=== PATIENT | female | born 1990 | race Caucasian/White ===

== ENCOUNTER 2016-10-27 08:42 | Inpatient (IN) | payer BC, OTHER ==
[2016-10-27] MEDS ORDERED: Nalbuphine 20 MG/1 ML Amp IVPUSH PRN (09:53)
[2016-10-27] MEDS ORDERED: Ondansetron 4 MG/2 ML SDV IVPUSH PRN ×2 (09:53→12:33)
[2016-10-27] MEDS ORDERED: Sodium Chloride 0.9% 10 ML Syringe FLUSH PRN (09:53)
[2016-10-27] MEDS ORDERED: Oxytocin/Lactated Ringers 10 UNIT/1,000 ML BAG IV SCH (10:00)
[2016-10-27] MEDS: Lactated Ringers 1,000 ML IV SCH ×3 (12:04→14:38)
[2016-10-27] MEDS ORDERED: ePHEDrine 50 MG/ML SDV IVPUSH PRN (12:33)
[2016-10-27] MEDS ORDERED: fentaNYL 100 MCG/2 ML SDV EPIDUR PRN (12:33)
--- NOTE | 2016-10-27 12:36 | PCM.PREANE ---
Preanesthetic Assessment - Anesthesia/Transfusion/Family Hx Anesthesia History: Prior Anesthesia Without Reaction Family History of Anesthesia Reaction: No Transfusion History: No Prior Transfusion(s) Intubation History: Unknown - Review of Systems General: No Symptoms Pulmonary: No Symptoms Cardiovascular: No Symptoms Gastrointestinal: No Symptoms Neurological: No Symptoms Other: Reports: None - Physical Assessment NPO Status Date: 10/27/16 NPO Status Time: 05:15 Pulse: 61 O2 Sat by Pulse Oximetry: 98 Respiratory Rate: 14 Blood Pressure: 113/68 Temperature: 36.6 C Vital Signs: Last Vital Signs Temp 36.6 C 10/27/16 09:53 Pulse 61 10/27/16 09:53 Resp 14 10/27/16 09:53 BP 113/68 10/27/16 09:53 Pulse Ox 98 10/27/16 12:33 Height: 1.6 m Weight: 68.492 kg ASA Class: 2 Mental Status: Alert & Oriented x3 Airway Class: Mallampati = 2 Dentition: Reports: Normal Dentition, Caries Thyro-Mental Finger Breadths: 3 Mouth Opening Finger Breadths: 3 ROM/Head Extension: Full Lungs: Clear to Auscultation, Normal Respiratory Effort Cardiovascular: Regular Rate, Regular Rhythm, No Murmurs - Lab Values: Laboratory Last Values WBC 12.79 K/mm3 (3.98-10.04) H 10/27/16 10:18 RBC 3.83 M/mm3 (3.98-5.22) L 10/27/16 10:18 Hgb 12.2 gm/L (11.2-15.7) 10/27/16 10:18 Hct 34.4 % (34.1-44.9) 10/27/16 10:18 MCV 89.8 fl (79.4-94.8) 10/27/16 10:18 MCH 31.9 pg (25.6-32.2) 10/27/16 10:18 MCHC 35.5 g/dl (32.2-35.5) 10/27/16 10:18 RDW Std Deviation 40.1 fL (36.4-46.3) 10/27/16 10:18 Plt Count 205 K/mm3 (182-369) 10/27/16 10:18 MPV 11.4 fl (9.4-12.3) 10/27/16 10:18 Neut % (Auto) 76.9 % (34.0-71.1) H 10/27/16 10:18 Lymph % (Auto) 15.2 % (19.3-51.7) L 10/27/16 10:18 [place] % (Auto) 7.1 % (4.7-12.5) 10/27/16 10:18 Eos % (Auto) 0.3 (0.7-5.8) L 10/27/16 10:18 Baso % (Auto) 0.2 % (0.1-1.2) 10/27/16 10:18 Neut # (Auto) 9.83 K/mm3 (1.56-6.13) H 10/27/16 10:18 Lymph # (Auto) 1.94 K/mm3 (1.18-3.74) 10/27/16 10:18 [place] # (Auto) 0.91 K/mm3 (0.24-0.36) H 10/27/16 10:18 Eos # (Auto) 0.04 K/mm3 (0.04-0.36) 10/27/16 10:18 Baso # (Auto) 0.03 K/mm3 (0.01-0.08) 10/27/16 10:18 Above labs reviewed and noted. 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 - SUBSTANCE USE Smoking Status *Q: Never Smoker Recreational Drug Use History: No - HOME MEDS Home Medications: Home Meds PNV95/Ferrous Fumarate/FA [ Tablet] 1 each PO DAILY 10/27/16 [History] - CURRENT (IN HOUSE) MEDS Current Meds: Current Medications Ephedrine Sulfate (Ephedrine Sulfate) 5 mg IVPUSH ASDIRECTED PRN PRN Reason: Hypotension Fentanyl (Sublimaze) 100 mcg EPIDUR Q3H PRN PRN Reason: Pain Fentanyl/Bupivacaine HCl (Fentanyl/Bupivacaine/Ns 2 Mcg-0.125% 100 Ml) 100 ml EPIDUR ASDIRECTED [facility] Lactated Ringer's (Ringers, Lactated) 1,000 mls @ 100 mls/hr IV ASDIRECTED [facility] Last Admin: 10/27/16 12:04 Dose: 999 mls/hr Oxytocin/Lactated Ringer's (Pitocin In Lr 10 Units/1,000 Ml) 10 unit in 1,000 mls @ 500 mls/hr IV .CONTINUOUS [facility] Nalbuphine HCl (Nubain) 10 mg IVPUSH Q2H PRN PRN Reason: Pain (moderate 4-6) Ondansetron HCl (Zofran) 4 mg IVPUSH Q4H PRN PRN Reason: Nausea/Vomiting Ondansetron HCl (Zofran) 4 mg IVPUSH ONETIME PRN PRN Reason: Nausea/Vomiting Sodium Chloride (Saline Flush) 10 ml FLUSH ASDIRECTED PRN PRN Reason: Keep Vein Open
[2016-10-27] MEDS ORDERED: Bupivacaine/fentaNYL/NS 100 ML Bag EPIDUR SCH (12:45)
--- NOTE | 2016-10-27 14:56 | PCM.LDHP ---
L&D History of Present Illness - General Date of Service: 10/27/16 Admit Problem/Dx: Patient Status Order with Admit Dx/Problem 10/27/16 09:53 Patient Status [ADT] Routine Admission Diagnosis/Problem Admission Diagnosis/Problem - History of Present Illness Introduction:: 25 year old at 39w6d. Here with contractions in active labor and with SROM meconium. SROM at 0400. 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 Social & Family History - Family History Family Medical History: Noncontributory - Tobacco Use Smoking Status *Q: Never Smoker - Caffeine Use Caffeine Use: Reports: Coffee - Recreational Drug Use Recreational Drug Use: No H&P Review of Systems - Review of Systems: Review Of Systems: See Below General: Reports: No Symptoms HEENT: Reports: No Symptoms Pulmonary: Reports: No Symptoms Cardiovascular: Reports: No Symptoms Gastrointestinal: Reports: No Symptoms Genitourinary: Reports: No Symptoms Musculoskeletal: Reports: No Symptoms Skin: Reports: No Symptoms Psychiatric: Reports: No Symptoms Neurological: Reports: No Symptoms Hematologic/Lymphatic: Reports: No Symptoms Immunologic: Reports: No Symptoms L&D Exam - Exam Exam: See Below - Vital Signs Vital Signs: Last Vital Signs Temp 36.6 C 10/27/16 12:51 Pulse 61 10/27/16 12:51 Resp 14 10/27/16 12:51 BP 113/68 10/27/16 12:51 Pulse Ox 98 10/27/16 12:51 Weight: 68.492 kg - OB Specific Contraction Intensity: Moderate Movement: Active Heart Tones: Present Heart Rate (FHR) Variability: Moderate (6-25 bmp) Presentation: Vertex - Meléndez Score Meléndez Score Cervix Position: Midposition Meléndez Score Effacement: 51-70% Meléndez Score Dilation: 3-4 cm Meléndez Score Infant's Station: -1 ,0 - Exam General: Alert, Oriented HEENT: PERRLA, Conjunctiva Clear, EACs Clear, EOMI, Hearing Intact, Mucosa Moist & [place], Nares Patent, Normal Nasal Septum, Posterior Pharynx Clear, TMs Clear Neck: Supple, Trachea Midline Lungs: Clear to Auscultation, Normal Respiratory Effort Cardiovascular: Regular Rate, Regular Rhythm GI/Abdominal Exam: Normal Bowel Sounds, Soft, Non-Tender, No Organomegaly, No Distention, No Abnormal Bruit, No Mass, Pelvis Stable Genitourinary: Normal external exam, Normal bimanual exam, Normal speculum exam Back Exam: Normal Inspection, Full Range of Motion Extremities: Normal Inspection, Normal Range of Motion, Non-Tender, No Pedal Edema, Normal Capillary Refill Skin: Warm, Dry, Intact Neurological: Cranial Nerves Intact, Reflexes Equal Bilateral Psychiatric: Alert, Normal Affect, Normal Mood - Patient Data Lab Results Last 24 hrs: Laboratory Results - last 24 hr 10/27/16 Range/Units 10:18 WBC 12.79 H (3.98-10.04) K/mm3 RBC 3.83 L (3.98-5.22) M/mm3 Hgb 12.2 (11.2-15.7) gm/L Hct 34.4 (34.1-44.9) % MCV 89.8 (79.4-94.8) fl MCH 31.9 (25.6-32.2) pg MCHC 35.5 (32.2-35.5) g/dl RDW Std Deviation 40.1 (36.4-46.3) fL Plt Count 205 (182-369) K/mm3 MPV 11.4 (9.4-12.3) fl Neut % (Auto) 76.9 H (34.0-71.1) % Lymph % (Auto) 15.2 L (19.3-51.7) % [place] % (Auto) 7.1 (4.7-12.5) % Eos % (Auto) 0.3 L (0.7-5.8) Baso % (Auto) 0.2 (0.1-1.2) % Neut # (Auto) 9.83 H (1.56-6.13) K/mm3 Lymph # (Auto) 1.94 (1.18-3.74) K/mm3 [place] # (Auto) 0.91 H (0.24-0.36) K/mm3 Eos # (Auto) 0.04 (0.04-0.36) K/mm3 Baso # (Auto) 0.03 (0.01-0.08) K/mm3 Result Diagrams: 10/27/16 10:18 Problem List Initiated/Reviewed/Updated: Yes Orders Last 24hrs: Active Orders 24 hr Category Date Time Status Patient Status [ADT] Routine ADT 10/27/16 09:53 Active Activity as Tolerated [RC] PFP Care 10/27/16 09:53 Active Communication Order [RC] ASDIRECTED Care 10/27/16 09:53 Active Heart Tones [RC] ASDIRECTED Care 10/27/16 09:54 Active Notify Provider [RC] ASDIRECTED Care 10/27/16 12:33 Active Notify Provider [RC] PFP Care 10/27/16 09:53 Active Notify Provider [RC] PRN Care 10/27/16 09:53 Active Oxygen Therapy [RC] ASDIRECTED Care 10/27/16 12:33 Active Peripheral IV Care [RC] . DIRECTED Care 10/27/16 09:54 Active Pulse Oximetry [RC] ASDIRECTED Care 10/27/16 12:33 Active Vital Signs [RC] PER UNIT ROUTINE Care 10/27/16 09:53 Active Clear Liquid Diet [DIET] Diet 10/27/16 Breakfast Active Bupivacaine/fentaNYL/NS [fentaNYL/Bupivacaine/NS 2 MCG- Med 10/27/16 12:45 Active 0.125% 100 ML] 100 ml EPIDUR ASDIRECTED Lactated Ringers [Ringers, Lactated] 1,000 ml Med 10/27/16 10:00 Active IV ASDIRECTED Nalbuphine [Nubain] Med 10/27/16 09:53 Active 10 mg IVPUSH Q2H PRN Ondansetron [Zofran] Med 10/27/16 12:33 Active 4 mg IVPUSH ONETIME PRN Ondansetron [Zofran] Med 10/27/16 09:53 Active 4 mg IVPUSH Q4H PRN Oxytocin/Lactated Ringers [Pitocin in LR 10 Units/1,000 Med 10/27/16 10:00 Active ML] 10 unit in 1,000 ml IV .CONTINUOUS Sodium Chloride 0.9% [Saline Flush] Med 10/27/16 09:53 Active 10 ml FLUSH ASDIRECTED PRN ePHEDrine [ePHEDrine Sulfate] Med 10/27/16 12:33 Active 5 mg IVPUSH ASDIRECTED PRN fentaNYL [Sublimaze] Med 10/27/16 12:33 Active 100 mcg EPIDUR Q3H PRN Electronic Heart Tones Ext w TOCO [WOMSER] Oth 10/27/16 09:53 Ordered Routine Electronic Heart Tones Internal [WOMSER] Per Unit Oth 10/27/16 09:53 Ordered Routine Peripheral IV Insertion Adult [OM.PC] Routine Oth 10/27/16 09:53 Ordered Resuscitation Status Routine Resus Stat 10/27/16 09:53 Ordered Medication Orders Ephedrine Sulfate (Ephedrine Sulfate) 5 mg IVPUSH ASDIRECTED PRN PRN Reason: Hypotension Fentanyl (Sublimaze) 100 mcg EPIDUR Q3H PRN PRN Reason: Pain Last Admin: 10/27/16 12:52 Dose: 100 mcg Fentanyl/Bupivacaine HCl (Fentanyl/Bupivacaine/Ns 2 Mcg-0.125% 100 Ml) 100 ml EPIDUR ASDIRECTED [facility] Last Admin: 10/27/16 12:51 Dose: 100 ml Lactated Ringer's (Ringers, Lactated) 1,000 mls @ 100 mls/hr IV ASDIRECTED [facility] Last Admin: 10/27/16 14:38 Dose: 125 mls/hr Infusion: 10/27/16 13:47 Dose: 999 mls/hr Admin: 10/27/16 12:46 Dose: 999 mls/hr Infusion: 10/27/16 12:46 Dose: 999 mls/hr Admin: 10/27/16 12:04 Dose: 999 mls/hr Oxytocin/Lactated Ringer's (Pitocin In Lr 10 Units/1,000 Ml) 10 unit in 1,000 mls @ 500 mls/hr IV .CONTINUOUS [facility] Nalbuphine HCl (Nubain) 10 mg IVPUSH Q2H PRN PRN Reason: Pain (moderate 4-6) Ondansetron HCl (Zofran) 4 mg IVPUSH Q4H PRN PRN Reason: Nausea/Vomiting Ondansetron HCl (Zofran) 4 mg IVPUSH ONETIME PRN PRN Reason: Nausea/Vomiting Sodium Chloride (Saline Flush) 10 ml FLUSH ASDIRECTED PRN PRN Reason: Keep Vein Open Assessment/Plan Comment:: Term labor. Desires epidural. Anticipate .
[2016-10-27] MEDS ORDERED: Witch Hazel Medicated Pads 100/Jar TOP PRN (20:25)
[2016-10-27] MEDS ORDERED: Lanolin 100% Cream 7 GM Tube TOP PRN (20:25)
[2016-10-27] MEDS ORDERED: Benzocaine/Menthol 20%-0.5% Spray 56 GM Canister TOP PRN (20:25)
[2016-10-27] MEDS: Ibuprofen 600 MG Tab PO PRN (21:27)
[2016-10-27] MEDS: Docusate Sodium 100 MG Cap PO PRN (21:27)
[2016-10-27] MEDS ORDERED: Bupivacaine 0.25% 10 ML SDV ONE (22:22)
--- NOTE | 2016-10-28 04:53 | PCM.PNPP ---
- General Info Date of Service: 10/28/16 Functional Status: Reports: Pain Controlled - Review of Systems General: Reports: No Symptoms HEENT: Reports: No Symptoms Pulmonary: Reports: No Symptoms Cardiovascular: Reports: No Symptoms Gastrointestinal: Reports: No Symptoms Genitourinary: Reports: No Symptoms Musculoskeletal: Reports: No Symptoms Skin: Reports: No Symptoms Neurological: Reports: No Symptoms Psychiatric: Reports: No Symptoms - General Info Date of Service: 10/28/16 - Patient Data Vital Signs - Most Recent: Last Vital Signs Temp 36.6 C 10/27/16 12:51 Pulse 61 10/27/16 12:51 Resp 14 10/27/16 12:51 BP 113/68 10/27/16 12:51 Pulse Ox 98 10/27/16 12:51 Weight - Most Recent: 68.492 kg Lab Results - Last 24 Hours: Laboratory Results - last 24 hr 10/27/16 Range/Units 10:18 WBC 12.79 H (3.98-10.04) K/mm3 RBC 3.83 L (3.98-5.22) M/mm3 Hgb 12.2 (11.2-15.7) gm/L Hct 34.4 (34.1-44.9) % MCV 89.8 (79.4-94.8) fl MCH 31.9 (25.6-32.2) pg MCHC 35.5 (32.2-35.5) g/dl RDW Std Deviation 40.1 (36.4-46.3) fL Plt Count 205 (182-369) K/mm3 MPV 11.4 (9.4-12.3) fl Neut % (Auto) 76.9 H (34.0-71.1) % Lymph % (Auto) 15.2 L (19.3-51.7) % [place] % (Auto) 7.1 (4.7-12.5) % Eos % (Auto) 0.3 L (0.7-5.8) Baso % (Auto) 0.2 (0.1-1.2) % Neut # (Auto) 9.83 H (1.56-6.13) K/mm3 Lymph # (Auto) 1.94 (1.18-3.74) K/mm3 [place] # (Auto) 0.91 H (0.24-0.36) K/mm3 Eos # (Auto) 0.04 (0.04-0.36) K/mm3 Baso # (Auto) 0.03 (0.01-0.08) K/mm3 Med Orders - Current: Current Medications Benzocaine/Menthol (Dermoplast Pain Relief [place]) 0 gm TOP ASDIRECTED PRN PRN Reason: Perineal Comfort Measure Last Admin: 10/27/16 21:25 Dose: 1 applic Docusate Sodium (Colace) 100 mg PO BID PRN PRN Reason: Constipation Last Admin: 10/27/16 21:27 Dose: 100 mg Emollient Ointment (Lansinoh Hpa) 0 gm TOP ASDIRECTED PRN PRN Reason: Sore Nipples Ibuprofen (Motrin) 600 mg PO Q6H PRN PRN Reason: Mild pain or fever Last Admin: 10/27/16 21:27 Dose: 600 mg Witch [place] (Tucks) 1 pad TOP ASDIRECTED PRN PRN Reason: Hemorrhoid pain Last Admin: 10/27/16 21:24 Dose: 1 applic Discontinued Medications Ephedrine Sulfate (Ephedrine Sulfate) 5 mg IVPUSH ASDIRECTED PRN PRN Reason: Hypotension Fentanyl (Sublimaze) 100 mcg EPIDUR Q3H PRN PRN Reason: Pain Last Admin: 10/27/16 12:52 Dose: 100 mcg Fentanyl/Bupivacaine HCl (Fentanyl/Bupivacaine/Ns 2 Mcg-0.125% 100 Ml) 100 ml EPIDUR ASDIRECTED [facility] Last Admin: 10/27/16 12:51 Dose: 100 ml Lactated Ringer's (Ringers, Lactated) 1,000 mls @ 100 mls/hr IV ASDIRECTED [facility] Last Admin: 10/27/16 14:38 Dose: 125 mls/hr Oxytocin/Lactated Ringer's (Pitocin In Lr 10 Units/1,000 Ml) 10 unit in 1,000 mls @ 500 mls/hr IV .CONTINUOUS [facility] Nalbuphine HCl (Nubain) 10 mg IVPUSH Q2H PRN PRN Reason: Pain (moderate 4-6) Ondansetron HCl (Zofran) 4 mg IVPUSH Q4H PRN PRN Reason: Nausea/Vomiting Ondansetron HCl (Zofran) 4 mg IVPUSH ONETIME PRN PRN Reason: Nausea/Vomiting Sodium Chloride (Saline Flush) 10 ml FLUSH ASDIRECTED PRN PRN Reason: Keep Vein Open - Infant Interaction Disposition, : [place] in Room with Family Support Person: - Recovery Exam Fundal Tone: Firm Fundal Level: At Umbilicus Fundal Placement: Midline Lochia Amount: Small, Moderate Lochia Color: Rubra/Red Perineum Description: Edematous Episiotomy/Laceration: Approximated Bladder Status: Voiding Urinary Elimination: Voided - Exam General: Alert, Oriented HEENT: Pupils Equal Neck: Supple Lungs: Clear to Auscultation, Normal Respiratory Effort Cardiovascular: Regular Rate, Regular Rhythm GI/Abdominal Exam: Normal Bowel Sounds, Soft, Non-Tender, No Organomegaly, No Distention, No Abnormal Bruit, No Mass, Pelvis Stable Extremities: Normal Inspection, Normal Range of Motion, Non-Tender Skin: Warm, Dry, Intact Wound/Incisions: Healing Well Neurological: No New Focal Deficit Psy/Mental Status: Alert, Normal Affect, Normal Mood - Problem List Review Problem List Initiated/Reviewed/Updated: Yes - My Orders Last 24 Hours: My Active Orders 10/27/16 09:53 Resuscitation Status Routine 10/27/16 09:54 Heart Tones [RC] ASDIRECTED 10/27/16 20:25 Benzocaine/Menthol [Dermoplast Pain Relief [place]] See Dose Instructions TOP ASDIRECTED PRN Docusate Sodium [Colace] 100 mg PO BID PRN Ibuprofen [Motrin] 600 mg PO Q6H PRN Lanolin [Lansinoh HPA] See Dose Instructions TOP ASDIRECTED PRN Witch [place] [Tucks] 1 pad TOP ASDIRECTED PRN 10/27/16 20:26 Patient Status [ADT] Routine Activity as Tolerated [RC] PER UNIT ROUTINE Vital Signs [RC] 04,12,20 Assess Lochia [WOMSER] Per Unit Routine Assess Uterine Involution [WOMSER] Per Unit Routine Breast Pump [WOMSER] Per Unit Routine Medication Administration Instruction [OM.PC] Routine Perineal Care [OM.PC] Per Unit Routine Sitz Bath [OM.PC] Per Unit Routine 10/27/16 20:30 Heat Therapy [OM.PC] PRN 10/27/16 Breakfast Regular Diet [DIET] 10/28/16 20:30 Heat Therapy [OM.PC] PRN - Assessment Assessment:: PPD1 Doing great. Minimal lochia. Ambulating, voiding and tolerating po's
[2016-10-28] MEDS: Ibuprofen 600 MG Tab PO PRN ×2 (08:53→16:44)
[2016-10-28] MEDS: Docusate Sodium 100 MG Cap PO PRN (08:53)
[2016-10-29] MEDS: Ibuprofen 600 MG Tab PO PRN ×2 (02:09→07:56)
[2016-10-29] MEDS: Docusate Sodium 100 MG Cap PO PRN (04:52)
[2016-10-29 14:26] VITALS: BP 107/59
--- NOTE | 2016-11-07 18:47 | PCM.DCSUM1 ---
Discharge Summary - Discharge Data Discharge Date: 10/29/16 Discharge Disposition: Home, Self-Care 01 Condition: Good - Patient Summary/Data Hospital Course: Unremarkable labor and delivery and - Patient Instructions Diet: Usual Diet as Tolerated Activity: No Strenuous Activities Driving: May Drive Today Showering/Bathing: May Shower Wound/Incision Care: Keep Operative Site/Wound Site Clean and Dry, Change Dressing Daily, Do NOT Change Dressing Notify Provider of: Fever, Increased Pain, Swelling and Redness, Drainage, Nausea and/or Vomiting - Discharge Plan Home Medications: Home Meds PNV95/Ferrous Fumarate/FA [ Tablet] 1 each PO DAILY 10/27/16 [History] Patient Handouts: Home Care Instructions for Mom Referrals: Yari Cabrera MD [Primary Care Provider] - (6 weeks ) - Discharge Summary/Plan Comment DC Time >30 min.: No - General Info Date of Service: 10/29/16 Functional Status: Reports: Pain Controlled - Review of Systems General: Reports: No Symptoms HEENT: Reports: No Symptoms Pulmonary: Reports: No Symptoms Cardiovascular: Reports: No Symptoms Gastrointestinal: Reports: No Symptoms Genitourinary: Reports: No Symptoms Musculoskeletal: Reports: No Symptoms Skin: Reports: No Symptoms Neurological: Reports: No Symptoms Psychiatric: Reports: No Symptoms - Patient Data Vitals - Most Recent: Last Vital Signs Temp 36.3 C 10/29/16 08:43 Pulse 59 L 10/29/16 08:43 Resp 16 10/29/16 08:43 BP 107/59 L 10/29/16 08:43 Pulse Ox 98 10/29/16 08:43 Weight - Most Recent: 68.492 kg Med Orders - Current: Current Medications Discontinued Medications Benzocaine/Menthol (Dermoplast Pain Relief [place]) 0 gm TOP ASDIRECTED PRN PRN Reason: Perineal Comfort Measure Last Admin: 10/27/16 21:25 Dose: 1 applic Bupivacaine HCl (Sensorcaine-Mpf 0.25%) 10 ml .ROUTE .STK-MED ONE Stop: 10/27/16 22:23 Docusate Sodium (Colace) 100 mg PO BID PRN PRN Reason: Constipation Last Admin: 10/29/16 04:52 Dose: 100 mg Emollient Ointment (Lansinoh Hpa) 0 gm TOP ASDIRECTED PRN PRN Reason: Sore Nipples Last Admin: 10/28/16 16:47 Dose: 7 gm Ephedrine Sulfate (Ephedrine Sulfate) 5 mg IVPUSH ASDIRECTED PRN PRN Reason: Hypotension Fentanyl (Sublimaze) 100 mcg EPIDUR Q3H PRN PRN Reason: Pain Last Admin: 10/27/16 12:52 Dose: 100 mcg Fentanyl/Bupivacaine HCl (Fentanyl/Bupivacaine/Ns 2 Mcg-0.125% 100 Ml) 100 ml EPIDUR ASDIRECTED [facility] Last Admin: 10/27/16 12:51 Dose: 100 ml Lactated Ringer's (Ringers, Lactated) 1,000 mls @ 100 mls/hr IV ASDIRECTED [facility] Last Admin: 10/27/16 14:38 Dose: 125 mls/hr Oxytocin/Lactated Ringer's (Pitocin In Lr 10 Units/1,000 Ml) 10 unit in 1,000 mls @ 500 mls/hr IV .CONTINUOUS [facility] Ibuprofen (Motrin) 600 mg PO Q6H PRN PRN Reason: Mild pain or fever Last Admin: 10/29/16 07:56 Dose: 600 mg Nalbuphine HCl (Nubain) 10 mg IVPUSH Q2H PRN PRN Reason: Pain (moderate 4-6) Ondansetron HCl (Zofran) 4 mg IVPUSH Q4H PRN PRN Reason: Nausea/Vomiting Ondansetron HCl (Zofran) 4 mg IVPUSH ONETIME PRN PRN Reason: Nausea/Vomiting Sodium Chloride (Saline Flush) 10 ml FLUSH ASDIRECTED PRN PRN Reason: Keep Vein Open Witch [place] (Tucks) 1 pad TOP ASDIRECTED PRN PRN Reason: Hemorrhoid pain Last Admin: 10/27/16 21:24 Dose: 1 applic - Exam General: Reports: Alert, Oriented HEENT: Reports: Pupils Equal, Pupils Reactive, EOMI, Mucous Membr. Moist/[place] Neck: Reports: Supple Lungs: Reports: Clear to Auscultation, Normal Respiratory Effort Cardiovascular: Reports: Regular Rate, Regular Rhythm GI/Abdominal Exam: Normal Bowel Sounds, Soft, Non-Tender, No Organomegaly, No Distention, No Abnormal Bruit, No Mass, Pelvis Stable (Female) Exam: Normal External Exam, Normal Speculum Exam, Normal Bimanual Exam Rectal (Female) Exam: Normal Exam, Normal Rectal Tone Back Exam: Reports: Normal Inspection, Full Range of Motion Extremities: Normal Inspection, Normal Range of Motion, Non-Tender, No Pedal Edema, Normal Capillary Refill Skin: Reports: Warm, Dry, Intact Wound/Incisions: Reports: Healing Well Neurological: Reports: No New Focal Deficit Psy/Mental Status: Reports: Alert, Normal Affect, Normal Mood *Q Meaningful Use (DIS) - VTE *Q VTE Criteria *Q: - Stroke *Q Stroke Criteria *Q: - AMI *Q AMI Criteria *Q:
== END 2016-10-29 12:15 | disposition home or self-care (01) | DRG 775 ==
LOC: JD.OBCHECK 08:42 → JD.OB 08:44 → JD.OBCHECK 09:53 → OBSVTOIN 17:23 → JD.OB 20:54
PROVIDERS: ADMIT Obstetrics & Gynecology; ATTEND Obstetrics & Gynecology
PROC: 10E0XZZ Delivery of Products of Conception, External Approach (ICD-10-PCS; principal; 2016-10-27)
PROC: 0KQM0ZZ Repair Perineum Muscle, Open Approach (ICD-10-PCS; 2016-10-27)
PROC: 00HU33Z Insertion of Infusion Device into Spinal Canal, Percutaneous Approach (ICD-10-PCS; 2016-10-27)
PROC: 3E0R3CZ (ICD-10-PCS; 2016-10-27)
DX: O42.02 Full-term premature rupture of membranes, onset of labor within 24 hours of rupture (principal); O77.0 Labor and delivery complicated by meconium in amniotic fluid; O70.1 Second degree perineal laceration during delivery; Z3A.40 40 weeks gestation of pregnancy; Z37.0 Single live birth; Z88.1 Allergy status to other antibiotic agents
CPT/HCPCS: 36415; 85025; A9270-GY; J3010; J7120

== ENCOUNTER 2019-07-12 06:11 | Inpatient (IN) | payer BC ==
[2019-07-12] MEDS ORDERED: Sodium Chloride 0.9% 10 ML Syringe FLUSH PRN (06:22)
[2019-07-12] MEDS ORDERED: Nalbuphine 10 MG/ML Syringe IVPUSH PRN (06:22)
[2019-07-12] MEDS ORDERED: Ondansetron 4 MG/2 ML SDV IVPUSH PRN (06:22)
[2019-07-12] MEDS ORDERED: Oxytocin/Lactated Ringers 10 UNIT/1,000 ML BAG IV SCH ×2 (06:30)
[2019-07-12] MEDS: Lactated Ringers 1,000 ML IV SCH ×2 (07:48→08:44)
[2019-07-12] MEDS ORDERED: diphenhydrAMINE 50 MG/ML SDV IVPUSH PRN (08:27)
[2019-07-12] MEDS ORDERED: ePHEDrine 50 MG/ML SDV IVPUSH PRN (08:27)
[2019-07-12] MEDS ORDERED: fentaNYL 100 MCG/2 ML SDV EPIDUR PRN (08:27)
[2019-07-12] MEDS ORDERED: Bupivacaine/fentaNYL/NS 100 ML Bag EPIDUR PRN (08:27)
--- NOTE | 2019-07-12 09:00 | PCM.LDHP ---
L&D History of Present Illness - General Date of Service: 07/12/19 Admit Problem/Dx: Patient Status Order with Admit Dx/Problem 07/12/19 06:17 Patient Status [ADT] Routine 07/12/19 06:22 Patient Status [ADT] Routine Admission Diagnosis/Problem Admission Diagnosis/Problem 07/12/19 08:39 Fiordaliza is a 28-year-old 4 para 10-1 white female admitted at 39-6/7 weeks with a GANESH of 07/13/2019 with SROM with resultant clear amniotic fluid in active labor with progressive cervical dilation. Source of Information: Patient History Limitations: Reports: No Limitations - History of Present Illness Introduction:: Fiordaliza is a 28-year-old 4 para 10-1 white female admitted at 39-6/7 weeks with a GANESH of 07/13/2019 with SROM with resultant clear amniotic fluid in active labor with progressive cervical dilation. She reports that she had spontaneous rupture membranes at approximately 05 30 this a.m. No inciting events to cause this. She called and was told to come in right away because of her distance from hospital as she lives in [place], [place]. She began baudilio shortly thereafter and upon admission was baudilio every 3- 5 minutes. Cervix on admission was 2-3 cm dilated which was increased from her last evaluation in clinic. Our tones were reassuring. Contractions noted to be moderate in intensity. DOG BEAUTICIAN history: Patient is a 2 para 1001. Certain last menstrual period occurred on 10/06/2018 which gives her due date of 07/13/2019 ultrasound done on 12/02/2018 was supportive of those dates. The patient was seen on a regular basis throughout the and had a normal weight gain of approximately 21 pounds. Her vital signs are stable throughout care. Her fundal height growth was appropriate. Her first baby weighed 6-1/2 pounds. She delivered vaginally. medications with that . Allergies: Cephalosporins which cause hives. Medications: 1. Ascorbic acid 1000 mg per day 2. vitamins daily taken form of gummy vitamins. Past medical history: 1. times one 2. ELVIS 1status post [place] Past surgical history: 1. LEEP done for ELVIS-1done since her last delivery 2. Tonsils, adenoids, ear tubes as a child. Family history: Parents are alive and well. All grandparents are alive. Them are healthy except for age-related problems. Patient has 2 younger sisters. Both are alive and well. Neither one has had a . There is no history of bleeding, blood clotting, female cancer disorders, unusual reactions to medications, asthma or related problems. Social history: Patient is . 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 They live in [place], [place]. She does not use any significant most alcohol, drugs or tobacco. Review of systems: In general patient has no complaints. She is reporting contractions upon admission and is leaking fluid which is clear in nature. Skin: Negative Lungs: No infectious symptoms or shortness of breath Cardiovascular: No chest pain or exercise intolerance Breasts: Patient plans to breast-feed. GI: Negative : Changes associated with . Musculoskeletal: Negative Neurological: Negative Physical exam: In general the patient is well-developed, well-nourished, pleasant female of stated age in no acute distress. On last evaluation clinic on 07/08/2019 patient blood pressure is 100/64. Pulse is 64. Weight was 150 with weight at first visit 129 pounds. Fundal height was 39 cm. Cervix is 1 cm, 75% effaced, -2 station. Skin is warm dry without lesions. HEENT, neck and back within normal limits. Lungs are clear with good breath sounds in all lung parmar. Cardiovascular exam shows regular and rhythm without murmurs. Breasts exam is deferred having been on the first medical visit and found to be normal and is not repeated at this time. Abdomen is gravid with last fundal height at 39 cm. Baby in vertex presentation by Maxim maneuvers at last visit. Genital per digital exam shows cervix as described above. Extremities and neurological exam are grossly within normal limits. Timing/Duration: Reports: seconds: - Related Data Allergies/Adverse Reactions: Allergies Allergy/AdvReac Type Severity Reaction Status Date / Time Cephalosporins Allergy Rash Verified 07/12/19 06:25 Home Medications: Home Meds Pnv No.95/Ferrous Fum/Folic AC [ Tablet] 1 each PO DAILY 10/27/16 [ History] Past Medical History - Past Health History Medical/Surgical History: Denies Medical/Surgical History HEENT History: Reports: Impaired Vision, Other (See Below) Other HEENT History: wears glasses DOG BEAUTICIAN History: Reports: , Spontaneous - Past Surgical History HEENT Surgical History: Reports: Adenoidectomy, Oral Surgery, Tonsillectomy, Other (See Below) Other HEENT Surgeries/Procedures: Pt reports having tubes when younge and a T&A. Female Surgical History: Reports: LEEP, Other (See Below) Other Female Surgeries/Procedures: cervical dysplasia Social & Family History - Family History Family Medical History: Noncontributory - Tobacco Use Smoking Status *Q: Never Smoker - Caffeine Use Caffeine Use: Reports: Coffee - Recreational Drug Use Recreational Drug Use: No H&P Review of Systems - Review of Systems: Review Of Systems: See Below L&D Exam - Exam Exam: See Below - Vital Signs Vital Signs: Last Vital Signs Temp 36.6 C 07/12/19 06:22 Pulse 81 07/12/19 06:22 Resp 16 07/12/19 06:22 BP 118/78 07/12/19 06:22 Pulse Ox 98 07/12/19 06:22 Weight: 67.132 kg - Patient Data Lab Results Last 24 hrs: Laboratory Results - last 24 hr 07/12/19 Range/Units 06:34 WBC 12.59 H (3.98-10.04) K/mm3 RBC 3.96 L (3.98-5.22) M/mm3 Hgb 12.6 (11.2-15.7) gm/dl Hct 36.1 (34.1-44.9) % MCV 91.2 (79.4-94.8) fl MCH 31.8 (25.6-32.2) pg MCHC 34.9 (32.2-35.5) g/dl RDW Std Deviation 41.8 (36.4-46.3) fL Plt Count 184 (182-369) K/mm3 MPV 10.9 (9.4-12.3) fl Neut % (Auto) 77.5 H (34.0-71.1) % Lymph % (Auto) 14.7 L (19.3-51.7) % [place] % (Auto) 6.6 (4.7-12.5) % Eos % (Auto) 0.5 L (0.7-5.8) Baso % (Auto) 0.2 (0.1-1.2) % Neut # (Auto) 9.76 H (1.56-6.13) K/mm3 Lymph # (Auto) 1.85 (1.18-3.74) K/mm3 [place] # (Auto) 0.83 H (0.24-0.36) K/mm3 Eos # (Auto) 0.06 (0.04-0.36) K/mm3 Baso # (Auto) 0.03 (0.01-0.08) K/mm3 Result Diagrams: 07/12/19 06:34 Problem List Initiated/Reviewed/Updated: Yes Orders Last 24hrs: Active Orders 24 hr Category Date Time Status Patient Status [ADT] Routine ADT 07/12/19 06:22 Active Activity as Tolerated [RC] PFP Care 07/12/19 06:22 Active Communication Order [RC] ASDIRECTED Care 07/12/19 06:22 Active Heart Tones [RC] ASDIRECTED Care 07/12/19 06:22 Active Non Stress Test [RC] PER UNIT ROUTINE Care 07/12/19 06:17 Active Notify Provider [RC] ASDIRECTED Care 07/12/19 08:27 Active Notify Provider [RC] PFP Care 07/12/19 06:22 Active Notify Provider [RC] PRN Care 07/12/19 06:22 Active Peripheral IV Care [RC] . DIRECTED Care 07/12/19 06:22 Active Pump Management, Intrathecal [RC] ASDIRECTED Care 07/12/19 06:23 Active Vital Signs [RC] PER UNIT ROUTINE Care 07/12/19 06:17 Active Vital Signs [RC] PER UNIT ROUTINE Care 07/12/19 06:22 Active Regular Diet [DIET] Diet 07/12/19 Breakfast Active BLOOD BANK HOLD SPECIMEN [BBK] Stat Lab 07/12/19 06:22 Ordered RAPID PLASMA REAGIN,RPR [CHEM] Routine Lab 07/12/19 06:34 Received Bupivacaine/fentaNYL/NS [fentaNYL/Bupivacaine/NS 2 MCG- Med 07/12/19 08:27 Active 0.125% 100 ML] 100 ml EPIDUR ASDIRECTED PRN Lactated Ringers [Ringers, Lactated] 1,000 ml Med 07/12/19 06:30 Active IV ASDIRECTED Nalbuphine [Nubain] Med 07/12/19 06:22 Active 10 mg IVPUSH Q2H PRN Ondansetron [Zofran] Med 07/12/19 06:22 Active 4 mg IVPUSH Q4H PRN Oxytocin/Lactated Ringers [Pitocin in LR 10 Units/1,000 Med 07/12/19 06:30 Active ML] 10 unit in 1,000 ml IV .CONTINUOUS Oxytocin/Lactated Ringers [Pitocin in LR 10 Units/1,000 Med 07/12/19 06:30 Active ML] 10 unit in 1,000 ml IV TITRATE Sodium Chloride 0.9% [Saline Flush] Med 07/12/19 06:22 Active 10 ml FLUSH ASDIRECTED PRN diphenhydrAMINE [Benadryl] Med 07/12/19 08:27 Active 25 mg IVPUSH Q6H PRN ePHEDrine [ePHEDrine sulfate] Med 07/12/19 08:27 Active 5 mg IVPUSH ASDIRECTED PRN fentaNYL [Sublimaze] Med 07/12/19 08:27 Active 100 mcg EPIDUR Q3H PRN Electronic Heart Tones Ext w TOCO [WOMSER] Oth 07/12/19 06:22 Ordered Routine Electronic Heart Tones Internal [WOMSER] Per Unit Oth 07/12/19 06:22 Ordered Routine Peripheral IV Insertion Adult [OM.PC] Routine Oth 07/12/19 06:22 Ordered Resuscitation Status Routine Resus Stat 07/12/19 06:16 Ordered Medication Orders Diphenhydramine HCl (Benadryl) 25 mg IVPUSH Q6H PRN PRN Reason: pruritis Ephedrine Sulfate (Ephedrine Sulfate) 5 mg IVPUSH ASDIRECTED PRN PRN Reason: Hypotension Fentanyl (Sublimaze) 100 mcg EPIDUR Q3H PRN PRN Reason: Pain Fentanyl/Bupivacaine HCl (Fentanyl/Bupivacaine/Ns 2 Mcg-0.125% 100 Ml) 100 ml EPIDUR ASDIRECTED PRN PRN Reason: Pain Lactated Ringer's (Ringers, Lactated) 1,000 mls @ 100 mls/hr IV ASDIRECTED KLAUDIA Last Admin: 07/12/19 07:48 Dose: 999 mls/hr Oxytocin/Lactated Ringer's (Pitocin In Lr 10 Units/1,000 Ml) 10 unit in 1,000 mls @ 500 mls/hr IV .CONTINUOUS KLAUDIA Oxytocin/Lactated Ringer's (Pitocin In Lr 10 Units/1,000 Ml) 10 unit in 1,000 mls @ 12 mls/hr IV TITRATE KLAUDIA; Protocol Nalbuphine HCl (Nubain) 10 mg IVPUSH Q2H PRN PRN Reason: Pain Ondansetron HCl (Zofran) 4 mg IVPUSH Q4H PRN PRN Reason: Nausea/Vomiting Sodium Chloride (Saline Flush) 10 ml FLUSH ASDIRECTED PRN PRN Reason: Keep Vein Open Assessment/Plan Comment:: 1. 39-6/7 week intrauterine , SROM with resultant clear amniotic fluid in active labor with progressive cervical dilation 2. Group B strep screen negative 3. Patient desires epidural in labor and delivery 4. Patient is Rh+ 5. Patient plans to breast-feed Plan: 1. Anticipate normal spontaneous vaginal delivery 2. Epidural per patient desire 3. RPR and CBC per protocol upon admission 4. Routine labor care 5. Support breast-feeding decision
--- NOTE | 2019-07-12 10:24 | PCM.PREANE ---
Preanesthetic Assessment - Procedure Proposed Procedure: Labor epidural - Anesthesia/Transfusion/Family Hx Anesthesia History: Prior Anesthesia Without Reaction Family History of Anesthesia Reaction: No Transfusion History: No Prior Transfusion(s) Anesthesia/Transfusion Comment: No previous difficulties with anesthesia - Review of Systems General: No Symptoms Pulmonary: No Symptoms Cardiovascular: No Symptoms Gastrointestinal: No Symptoms Neurological: No Symptoms Other: Reports: None - Physical Assessment NPO Status Date: 07/12/19 NPO Status Time: 06:00 (Full stomach) Vital Signs: Last Vital Signs Temp 36.6 C 07/12/19 06:22 Pulse 81 07/12/19 06:22 Resp 16 07/12/19 06:22 BP 118/78 07/12/19 06:22 Pulse Ox 98 07/12/19 06:22 Height: 5 ft 3 in Weight: 67.132 kg ASA Class: 1 Mental Status: Alert & Oriented x3 Airway Class: Mallampati = 1 Dentition: Reports: Normal Dentition Thyro-Mental Finger Breadths: 3 Mouth Opening Finger Breadths: 3 ROM/Head Extension: Full Lungs: Clear to Auscultation, Normal Respiratory Effort Cardiovascular: Regular Rate, Regular Rhythm - Lab Values: Laboratory Last Values WBC 12.59 K/mm3 (3.98-10.04) H 07/12/19 06:34 RBC 3.96 M/mm3 (3.98-5.22) L 07/12/19 06:34 Hgb 12.6 gm/dl (11.2-15.7) 07/12/19 06:34 Hct 36.1 % (34.1-44.9) 07/12/19 06:34 MCV 91.2 fl (79.4-94.8) 07/12/19 06:34 MCH 31.8 pg (25.6-32.2) 07/12/19 06:34 MCHC 34.9 g/dl (32.2-35.5) 07/12/19 06:34 RDW Std Deviation 41.8 fL (36.4-46.3) 07/12/19 06:34 Plt Count 184 K/mm3 (182-369) 07/12/19 06:34 MPV 10.9 fl (9.4-12.3) 07/12/19 06:34 Neut % (Auto) 77.5 % (34.0-71.1) H 07/12/19 06:34 Lymph % (Auto) 14.7 % (19.3-51.7) L 07/12/19 06:34 [place] % (Auto) 6.6 % (4.7-12.5) 07/12/19 06:34 Eos % (Auto) 0.5 (0.7-5.8) L 07/12/19 06:34 Baso % (Auto) 0.2 % (0.1-1.2) 07/12/19 06:34 Neut # (Auto) 9.76 K/mm3 (1.56-6.13) H 07/12/19 06:34 Lymph # (Auto) 1.85 K/mm3 (1.18-3.74) 07/12/19 06:34 [place] # (Auto) 0.83 K/mm3 (0.24-0.36) H 07/12/19 06:34 Eos # (Auto) 0.06 K/mm3 (0.04-0.36) 07/12/19 06:34 Baso # (Auto) 0.03 K/mm3 (0.01-0.08) 07/12/19 06:34 - Allergies Allergies/Adverse Reactions: Allergies Allergy/AdvReac Type Severity Reaction Status Date / Time Cephalosporins Allergy Rash Verified 07/12/19 06:25 - Acknowledgements Anesthesia Type Planned: Epidural Pt an Appropriate Candidate for the Planned Anesthesia: Yes Alternatives and Risks of Anesthesia Discussed w Pt/Guardian: Yes Pt/Guardian Understands and Agrees with Anesthesia Plan: Yes PreAnesthesia Questionnaire - Past Health History Medical/Surgical History: Denies Medical/Surgical History HEENT History: Reports: Impaired Vision, Other (See Below) Other HEENT History: wears glasses [employer] SU[employer] SPECIALIST History: Reports: , Spontaneous - Past Surgical History HEENT Surgical History: Reports: Adenoidectomy, Oral Surgery, Tonsillectomy, Other (See Below) Other HEENT Surgeries/Procedures: Pt reports having tubes when younge and a T&A. Female Surgical History: Reports: LEEP, Other (See Below) Other Female Surgeries/Procedures: cervical dysplasia - SUBSTANCE USE Smoking Status *Q: Never Smoker Recreational Drug Use History: No - HOME MEDS Home Medications: Home Meds Pnv No.95/Ferrous Fum/Folic AC [ Tablet] 1 each PO DAILY 10/27/16 [ History] - CURRENT (IN HOUSE) MEDS Current Meds: Current Medications Diphenhydramine HCl (Benadryl) 25 mg IVPUSH Q6H PRN PRN Reason: pruritis Ephedrine Sulfate (Ephedrine Sulfate) 5 mg IVPUSH ASDIRECTED PRN PRN Reason: Hypotension Fentanyl (Sublimaze) 100 mcg EPIDUR Q3H PRN PRN Reason: Pain Last Admin: 07/12/19 08:44 Dose: 100 mcg Fentanyl/Bupivacaine HCl (Fentanyl/Bupivacaine/Ns 2 Mcg-0.125% 100 Ml) 100 ml EPIDUR ASDIRECTED PRN PRN Reason: Pain Last Admin: 07/12/19 08:43 Dose: 100 ml Lactated Ringer's (Ringers, Lactated) 1,000 mls @ 100 mls/hr IV ASDIRECTED KLAUDIA Last Admin: 07/12/19 08:44 Dose: 999 mls/hr Oxytocin/Lactated Ringer's (Pitocin In Lr 10 Units/1,000 Ml) 10 unit in 1,000 mls @ 500 mls/hr IV .CONTINUOUS KLAUDIA Last Admin: 07/12/19 10:01 Dose: 500 mls/hr Oxytocin/Lactated Ringer's (Pitocin In Lr 10 Units/1,000 Ml) 10 unit in 1,000 mls @ 12 mls/hr IV TITRATE KLAUDIA; Protocol Nalbuphine HCl (Nubain) 10 mg IVPUSH Q2H PRN PRN Reason: Pain Ondansetron HCl (Zofran) 4 mg IVPUSH Q4H PRN PRN Reason: Nausea/Vomiting Sodium Chloride (Saline Flush) 10 ml FLUSH ASDIRECTED PRN PRN Reason: Keep Vein Open
[2019-07-12] MEDS ORDERED: Docusate Sodium 100 MG Cap PO PRN (10:40)
[2019-07-12] MEDS ORDERED: Acetaminophen 325 MG Tab PO PRN (10:40)
[2019-07-12] MEDS ORDERED: Benzocaine/Menthol 20%-0.5% Spray 56 GM Canister TOP PRN (10:40)
[2019-07-12] MEDS ORDERED: Witch Hazel Medicated Pads 40/Jar TOP PRN (10:40)
--- NOTE | 2019-07-12 11:07 | PCM.SN.2 ---
- Free Text/Narrative Note: Delivery note: Fiordaliza is a 28-year-old 2 now para 2002 white female who was admitted on a.m. of 07/12/2019 with spontaneous rupture membranes in active labor with cervical change. She had an GANESH of 07/13/2019 placing her at 39-6/7 weeks gestational age. The patient progressed very rapidly. She had an epidural for analgesia. Multiple variable decelerations were noted with contractions with 2 short periods of bradycardia. In retrospect was felt to be due to the patient's very rapid labor. The baby reached complete cervical dilation by approximately 0950 hrs. She pushed 3 contractions and at 0957 hrs. on 07/12/2019 she delivered a viable, potts, male with Apgars of 8 and 9, a weight of 3700 g (8 pounds 2.5 ounces), a length of 22.0 inches in a left occiput anterior position. Nuchal cord was noted 2moderately tight and was reduced over the baby's body. The baby was placed on mom's abdomen. The umbilical cord was allowed to pulsate 2-3 minutes. It was then clamped 2 and cut by the baby's father Braeden. The baby' s nose and mouth were bulb suctioned and the baby was dried with a warm blanket. Pitocin was started IV at a rate of 500 mL per hour with solution per protocol. Cord blood was obtained. The umbilical cord had 3 vessels present within it. The perineal and vaginal area were found to be intact and no suturing was required. The placenta delivered in a Hansen presentation at 1002 hrs. It appeared intact and complete and was discarded per patient desire. Estimated blood loss was 100 mL. Patient plans to breast-feed. The baby's name is Claudia Neville. Condition: Good
[2019-07-12] MEDS: Ibuprofen 600 MG Tab PO PRN ×2 (12:02→20:02)
--- NOTE | 2019-07-13 06:13 | PCM.DCSUM1 ---
Discharge Summary - Hospital Course Free Text/Narrative:: Fiordaliza is a 28-year-old 2 now para 2002 white female who was admitted on a.m. of 07/12/2019 with spontaneous rupture membranes in active labor with cervical change. She had an GANESH of 07/13/2019 placing her at 39-6/7 weeks gestational age. The patient progressed very rapidly. She had an epidural for analgesia. Multiple variable decelerations were noted with contractions with 2 short periods of bradycardia. In retrospect was felt to be due to the patient's very rapid labor. The baby reached complete cervical dilation by approximately 0950 hrs. She pushed 3 contractions and at 0957 hrs. on 07/12/2019 she delivered a viable, potts, male infant with Apgars of 8 and 9, a weight of 3700 g (8 pounds 2.5 ounces), a length of 22.0 inches in a left occiput anterior position. Nuchal cord was noted 2moderately tight and was reduced over the baby's body. The baby was placed on mom's abdomen. The umbilical cord was allowed to pulsate 2-3 minutes. It was then clamped 2 and cut by the baby's father Braeden. The baby' s nose and mouth were bulb suctioned and the baby was dried with a warm blanket. Pitocin was started IV at a rate of 500 mL per hour with solution per protocol. Cord blood was obtained. The umbilical cord had 3 vessels present within it. The perineal and vaginal area were found to be intact and no suturing was required. The placenta delivered in a Hansen presentation at 1002 hrs. It appeared intact and complete and was discarded per patient desire. Estimated blood loss was 100 mL. Patient plans to breast-feed. The baby's name is Claudia Neville. patient is done well. She is ambulating well, has minimal lochia. She is voiding without problems. She is nursing without concerns. She is desiring discharge home. Condition: Good - Discharge Data Discharge Date: 07/13/19 Discharge Disposition: Home, Self-Care 01 Condition: Good - Referral to Home Health Primary Care Physician: Yari Cabrera MD - Patient Instructions Diet: Regular Diet as Tolerated (Nursing diet with increased calories and calcium as recommended) Activity: As Tolerated (No intercourse or tampons until bleeding resolves) Driving: May Drive Today Showering/Bathing: May Shower (May take a bath) Notify Provider of: Fever, Increased Pain, Swelling and Redness, Nausea and/or Vomiting - Discharge Plan Home Medications: Home Meds Pnv No.95/Ferrous Fum/Folic AC [ Tablet] 1 each PO DAILY 10/27/16 [ History] Acetaminophen [Tylenol] 650 mg PO Q4H PRN tablet 07/13/19 [Rx] Ibuprofen [Motrin] 600 mg PO Q4H PRN tablet 07/13/19 [Rx] Referrals: Yari Cabrera MD [Primary Care Provider] - (Return to clinicDr. Rick . Patient to call clinic for an appointment.) - Discharge Summary/Plan Comment DC Time >30 min.: No Discharge Summary/Plan Comment: Discharge instructions: 1. Discharge home 2. Diet, activity and follow-up discussed with patient. Recommend nursing diet with increased calories and calcium. 3. Precautions given concern increased pain, bleeding, temperature, signs/ symptoms of DVT/PE. 4. Medications per home medication was printed, discussed with and given to the patient. 5. The patient is to call [facility] for appointment. Diagnosis: Term -delivered Condition: Good - Patient Data Vitals - Most Recent: Last Vital Signs Temp 36.7 C 07/12/19 20:04 Pulse 63 07/12/19 20:04 Resp 16 07/12/19 20:04 BP 97/52 L 07/12/19 20:04 Pulse Ox 96 07/12/19 20:04 Weight - Most Recent: 67.132 kg I&O - Last 24 hours: Intake & Output 07/12/19 07/12/19 07/13/19 14:59 22:59 06:59 Intake Total 2730 120 Output Total 100 Balance 2630 120 Lab Results - Last 24 hrs: Laboratory Results - last 24 hr 07/12/19 07/12/19 Range/Units 06:34 06:34 WBC 12.59 H (3.98-10.04) K/mm3 RBC 3.96 L (3.98-5.22) M/mm3 Hgb 12.6 (11.2-15.7) gm/dl Hct 36.1 (34.1-44.9) % MCV 91.2 (79.4-94.8) fl MCH 31.8 (25.6-32.2) pg MCHC 34.9 (32.2-35.5) g/dl RDW Std Deviation 41.8 (36.4-46.3) fL Plt Count 184 (182-369) K/mm3 MPV 10.9 (9.4-12.3) fl Neut % (Auto) 77.5 H (34.0-71.1) % Lymph % (Auto) 14.7 L (19.3-51.7) % [place] % (Auto) 6.6 (4.7-12.5) % Eos % (Auto) 0.5 L (0.7-5.8) Baso % (Auto) 0.2 (0.1-1.2) % Neut # (Auto) 9.76 H (1.56-6.13) K/mm3 Lymph # (Auto) 1.85 (1.18-3.74) K/mm3 [place] # (Auto) 0.83 H (0.24-0.36) K/mm3 Eos # (Auto) 0.06 (0.04-0.36) K/mm3 Baso # (Auto) 0.03 (0.01-0.08) K/mm3 RPR Non-reactive (NONREACTIVE) Med Orders - Current: Current Medications Acetaminophen (Tylenol) 650 mg PO Q4H PRN PRN Reason: mild pain or fever Benzocaine/Menthol (Dermoplast Pain Relief Weiser) 0 gm TOP ASDIRECTED PRN PRN Reason: Perineal Comfort Measure Last Admin: 07/12/19 12:02 Dose: 1 applic Docusate Sodium (Colace) 100 mg PO BID PRN PRN Reason: Constipation Ibuprofen (Motrin) 600 mg PO Q4H PRN PRN Reason: Mild pain or fever Last Admin: 07/12/19 20:02 Dose: 600 mg Prenat Multivit/[place]/Iron/Folic Ac ( Plus Iron) 1 each PO DAILY KLAUDIA Barnhart (Tucks) 1 pad TOP ASDIRECTED PRN PRN Reason: Perineal Comfort Measure Last Admin: 07/12/19 12:02 Dose: 1 applic Discontinued Medications Diphenhydramine HCl (Benadryl) 25 mg IVPUSH Q6H PRN PRN Reason: pruritis Ephedrine Sulfate (Ephedrine Sulfate) 5 mg IVPUSH ASDIRECTED PRN PRN Reason: Hypotension Fentanyl (Sublimaze) 100 mcg EPIDUR Q3H PRN PRN Reason: Pain Last Admin: 07/12/19 08:44 Dose: 100 mcg Fentanyl/Bupivacaine HCl (Fentanyl/Bupivacaine/Ns 2 Mcg-0.125% 100 Ml) 100 ml EPIDUR ASDIRECTED PRN PRN Reason: Pain Last Admin: 07/12/19 08:43 Dose: 100 ml Lactated Ringer's (Ringers, Lactated) 1,000 mls @ 100 mls/hr IV ASDIRECTED KLAUDIA Last Admin: 07/12/19 08:44 Dose: 999 mls/hr Oxytocin/Lactated Ringer's (Pitocin In Lr 10 Units/1,000 Ml) 10 unit in 1,000 mls @ 500 mls/hr IV .CONTINUOUS KLAUDIA Last Admin: 07/12/19 10:01 Dose: 500 mls/hr Oxytocin/Lactated Ringer's (Pitocin In Lr 10 Units/1,000 Ml) 10 unit in 1,000 mls @ 12 mls/hr IV TITRATE KLAUDIA; Protocol Nalbuphine HCl (Nubain) 10 mg IVPUSH Q2H PRN PRN Reason: Pain Ondansetron HCl (Zofran) 4 mg IVPUSH Q4H PRN PRN Reason: Nausea/Vomiting Sodium Chloride (Saline Flush) 10 ml FLUSH ASDIRECTED PRN PRN Reason: Keep Vein Open
[2019-07-13] MEDS: Ibuprofen 600 MG Tab PO PRN (08:00)
[2019-07-13] MEDS ORDERED: Prenatal Multivitamin with Calcium/Folic Acid/Iron Tab PO SCH (09:00)
[2019-07-13 10:33] VITALS: BP 103/67; PULSE 65
== END 2019-07-13 13:30 | disposition home or self-care (01) | DRG 560 ==
LOC: JD.OB 06:11 → JD.OBCHECK 06:11 → JD.OB 06:22 → OBSVTOIN 09:57 → JD.OB 10:19
PROVIDERS: ADMIT Obstetrics & Gynecology; ATTEND Obstetrics & Gynecology
PROC: 10E0XZZ Delivery of Products of Conception, External Approach (ICD-10-PCS; principal; 2019-07-12)
PROC: 3E0R3BZ Introduction of Anesthetic Agent into Spinal Canal, Percutaneous Approach (ICD-10-PCS; 2019-07-12)
DX: O69.1XX0 Labor and delivery complicated by cord around neck, with compression, not applicable or unspecified (principal); O76 Abnormality in fetal heart rate and rhythm complicating labor and delivery; Z3A.39 39 weeks gestation of pregnancy; Z37.0 Single live birth; Z79.899 Other long term (current) drug therapy; Z88.1 Allergy status to other antibiotic agents
CPT/HCPCS: 01967; 36415; 51701; 59025; 59409; 85025; 86592; A9270-GY; J2590; J3010; J7120

== ENCOUNTER 2022-03-04 07:55 | Inpatient (IN) | payer BC ==
[~2022-03-04 07:55] MED LIST: Ropivacaine 0.2% PF 2 MG/ML 20 ML SDV ONE
[2022-03-04] MEDS ORDERED: Ondansetron 4 MG/2 ML SDV IVPUSH PRN (08:27)
[2022-03-04] MEDS ORDERED: Sodium Chloride 0.9% 10 ML Syringe FLUSH PRN (08:27)
[2022-03-04] MEDS ORDERED: Nalbuphine 10 MG/0.5 ML Syringe IVPUSH PRN (08:27)
[2022-03-04] MEDS ORDERED: Calcium Carbonate 500 MG Tab.Chew PO PRN (08:27)
[2022-03-04] MEDS ORDERED: Oxytocin/Lactated Ringers 10 UNIT/1,000 ML BAG IV SCH (08:30)
[2022-03-04] MEDS: Lactated Ringers 1,000 ML IV SCH ×2 (12:35→13:32)
[2022-03-04] MEDS ORDERED: ePHEDrine 50 MG/ML SDV IVPUSH PRN (13:16)
[2022-03-04] MEDS ORDERED: diphenhydrAMINE 50 MG/ML SDV IVPUSH PRN (13:16)
[2022-03-04] MEDS ORDERED: fentaNYL 100 MCG/2 ML SDV EPIDUR PRN (13:16)
[2022-03-04] MEDS ORDERED: Ropivacaine 200 MG in Premix Bag 1 BAG EPIDUR SCH (13:30)
[2022-03-04] MEDS ORDERED: Docusate Sodium 100 MG Cap PO PRN (16:58)
[2022-03-04] MEDS ORDERED: Benzocaine/Menthol 20%-0.5% Spray 78 GM Cannister TOP PRN (16:58)
[2022-03-04] MEDS ORDERED: Witch Hazel Medicated Pads 40/Jar TOP PRN (16:58)
[2022-03-04] MEDS ORDERED: Acetaminophen 325 MG Tab PO PRN (16:58)
[2022-03-04] MEDS: Ibuprofen 600 MG Tab PO PRN (21:40)
[2022-03-05] MEDS: Ibuprofen 600 MG Tab PO PRN ×3 (08:29→20:45)
[2022-03-05] MEDS: Prenatal Multivitamin with Calcium/Folic Acid/Iron Tab PO SCH (08:30)
[2022-03-06] MEDS: Ibuprofen 600 MG Tab PO PRN ×2 (03:44→10:09)
[2022-03-06 09:24] VITALS: BP 99/60; PULSE 69
[2022-03-06] MEDS: Prenatal Multivitamin with Calcium/Folic Acid/Iron Tab PO SCH (10:09)
== END 2022-03-06 10:24 | disposition home or self-care (01) | DRG 560 ==
LOC: JD.OBCHECK 07:55 → JD.OB 08:02 → JD.OBCHECK 08:40 → OBSVTOIN 16:00 → JD.OB 16:01
PROVIDERS: ADMIT Obstetrics & Gynecology; ATTEND Obstetrics & Gynecology
PROC: 10E0XZZ Delivery of Products of Conception, External Approach (ICD-10-PCS; principal; 2022-03-04)
PROC: 3E0R3BZ Introduction of Anesthetic Agent into Spinal Canal, Percutaneous Approach (ICD-10-PCS; 2022-03-04)
PROC: 00HU33Z Insertion of Infusion Device into Spinal Canal, Percutaneous Approach (ICD-10-PCS; 2022-03-04)
DX: O99.02 Anemia complicating childbirth (principal); D64.9 Anemia, unspecified; O76 Abnormality in fetal heart rate and rhythm complicating labor and delivery; Z3A.39 39 weeks gestation of pregnancy; Z37.0 Single live birth; Z90.89 Acquired absence of other organs; Z88.1 Allergy status to other antibiotic agents; Z86.16 Personal history of COVID-19
CPT/HCPCS: 36415; 51701; 59025; 59409; 85025; 86592; A9270-GY; J2590; J2795; J3010; J7120

== ENCOUNTER 2024-12-10 20:06 | Inpatient (IN) | payer BC ==
[2024-12-10] MEDS ORDERED: Sodium Chloride 0.9% 10 ML Syringe FLUSH PRN (20:51)
[2024-12-10] MEDS ORDERED: Nalbuphine 10 MG/1 ML Vial IVPUSH PRN (20:51)
[2024-12-10] MEDS ORDERED: Ondansetron 4 MG/2 ML SDV IVPUSH PRN (20:51)
[2024-12-10] MEDS ORDERED: Lactated Ringers 1,000 ML IV SCH (21:00)
[2024-12-10 21:08] LABS: BASOPHILS ABSOLUTE AUTO 0.0 K/mm3 (0.0-0.2); BASOPHILS PERCENT AUTO 0.3 % (0.0-1.0); EOSINOPHILS ABSOLUTE AUTO 0.1 K/mm3 (0.0-0.4); EOSINOPHILS PERCENT AUTO 0.4 % (0.0-6.0); IMMATURE GRAN ABSOLUTE AUTO 0.06 K/mm3 (0.00-0.05); IMMATURE GRAN PERCENT AUTO 0.5 % (0.0-0.4); LYMPHOCYTES ABSOLUTE AUTO 2.0 K/mm3 (1.0-4.8); LYMPHOCYTES PERCENT AUTO 15.0 % (24.0-44.0); MEAN PLATELET VOLUME 10.7 fl (9.4-12.3); MONOCYTES ABSOLUTE AUTO 0.9 K/mm3 (0.0-0.8); MONOCYTES PERCENT AUTO 6.8 % (0.0-8.0); NEUTROPHILS ABSOLUTE AUTO 10.1 K/mm3 (1.8-7.7); NEUTROPHILS PERCENT AUTO 77.0 % (41.0-71.0); NRBC ABSOLUTE 0.00 (0.00-0.02); NRBC PERCENT 0.0 % (0.0-0.2); PLATELET COUNT,PLT 177 K/mm3 (150-400); RED BLOOD CELL COUNT 3.57 M/mm3 (4.10-5.30); WHITE BLOOD CELL COUNT,WBC 13.10 K/mm3 (3.9-11.3)
[2024-12-10] MEDS: Oxytocin/0.9 % Sodium Chloride 30 UNIT/500 ML BAG IV SCH (22:30)
[2024-12-11] MEDS ORDERED: Oxytocin/0.9 % Sodium Chloride 30 UNIT/500 ML BAG IV SCH (00:46)
[2024-12-11] MEDS ORDERED: Magnesium Hydroxide 400 MG/5 ML Susp 30 ML Cup PO PRN (00:46)
[2024-12-11] MEDS: Benzocaine/Menthol 20%-0.5% Spray 78 GM Cannister TOP PRN (00:53)
[2024-12-11] MEDS: Witch Hazel Medicated Pads 40/Jar TOP PRN (00:53)
[2024-12-11] MEDS: Prenatal Multivitamin with Calcium/Folic Acid/Iron Tab PO SCH (10:50)
[2024-12-12 04:53] VITALS: BP 91/53; PULSE 66
== END 2024-12-12 13:15 | disposition home or self-care (01) | DRG 560 ==
LOC: JD.OBCHECK 20:06 → JD.OB 20:09 → JD.OBCHECK 22:31 → OBSVTOIN 22:31 → JD.OB 22:32
PROVIDERS: ADMIT Obstetrics & Gynecology; ATTEND Obstetrics & Gynecology
PROC: 10E0XZZ Delivery of Products of Conception, External Approach (ICD-10-PCS; principal; 2024-12-10)
DX: O99.892 Other specified diseases and conditions complicating childbirth (principal); O99.02 Anemia complicating childbirth; O70.0 First degree perineal laceration during delivery; Z3A.39 39 weeks gestation of pregnancy; Z37.0 Single live birth; Z90.49 Acquired absence of other specified parts of digestive tract; Z98.890 Other specified postprocedural states; Z88.8 Allergy status to other drugs, medicaments and biological substances; Z79.899 Other long term (current) drug therapy; Z86.16 Personal history of COVID-19
CPT/HCPCS: 36415; 59025; 59409; 85025; 86592; 86850; 86900; 86901; A9270-GY; J7999